=== PATIENT | female | born 1975 | race Caucasian/White ===

== ENCOUNTER 2024-04-07 15:14 | Observation (INO) ==
--- NOTE | 2024-04-07 15:35 | Emergency Department Note ---
HPI - Chest Pain General Chief Complaint: SOB -Shortness of Breath Stated Complaint: chest pain,sob Time Seen by Provider: 04/07/24 15:30 Source: patient Mode of arrival: walk-in Limitations: no limitations History of Present Illness HPI narrative: This is a 48 year old female patient that presents to the ER with c/o chest pain with SOB sent by PCP office today. Patient denies any back pain, abdominal pain, numbness, tingling, weakness, fever, chills or N/V/D MD complaint: Reports chest pain Onset (ago): day(s) (2) Timing of current episode: Reports episodic Onset: Reports during rest Pain location: Reports left chest Pain radiation: Reports none Severity: mild Quality: Reports tightness Relieving factors: Reports nothing Exacerbating factors: Reports nothing Treatment prior to arrival: Reports none Risk Factors Coronary artery disease risk factors: Reports hypertension Thoracic aortic dissection risk factors: Reports none Pulmonary embolism risk factors: Reports none Related Data Allergies Allergy/AdvReac Type Severity Reaction Status Date / Time PROBIOTICS Allergy Uncoded 04/07/24 15:48 STEROIDS Allergy Uncoded 04/07/24 15:48 Review of Systems Status of ROS 10 or more systems reviewed and unremark able except as noted in history and below Constitutional Denies: fever, chills, change in weight, fatigue or malaise Eyes Denies: change in vision, blurry vision or blind spots Ears, nose, mouth, and throat Denies: throat pain, neck pain, throat swelling, difficulty swallowing, hoarseness or mouth pain Cardiovascular Reports: chest pain; Denies: palpitations, edema, swelling of feet/ankles, lightheadedness or shortness of breath with exertion Respiratory Reports: shortness of breath; Denies: cough, wheezing, stridor, pain on inspiration, change in phlegm color or coughing up blood Gastrointestinal Denies: abdominal pain, nausea, vomiting, coffee grounds in vomit, heartburn, diarrhea, white/light colored stool or fatty stool Genitourinary Denies: painful urination, urinary frequency, urinary urgency, urinary incontinence or blood in urine Musculoskeletal Denies: back pain, neck pain, extremity pain, extremity swelling, joint pain or limited range of motion Integumentary/Breast Denies: rash, itching, redness, skin pain, skin tenderness, skin swelling, stretch mota or acne Neurological Denies: headache, numbness in extremities, weakness in extremities or lack of coordination Psychiatric Denies: anxiety, mood swings, panic attacks or change in sleep pattern Endocrine Denies: excessive urination, excessive thirst, fatigue, cold intolerance or excessive sweating Hematologic/Lymphatic Denies: easy bruising, easy bleeding or enlarged lymph nodes Allergic/Immunologic Denies: hives, throat swelling, tongue swelling or facial swelling Exam Constitutional: normal general appearance and no apparent distress Vital Signs - 24 hr 04/07/24 15:20 04/07/24 16:05 Temperature 98 F Pulse Rate 86 Respiratory Rate 18 Blood Pressure 159/96 119/76 Pulse Oximetry 97 Oxygen Delivery Me thod Room Air HENMT: normocephalic, head/scalp atraumatic, hearing grossly normal bilaterally, external ears normal, nasal mucous membranes normal, external nose normal, oral mucous membranes normal and oropharynx normal Eyes: PERRL, EOMs intact bilaterally, conjunctivae normal and no scleral icterus Neck/C-Spine: visual inspection normal and trachea midline Lymph: no lymphadenopathy noted Chest: inspection of chest normal and palpation of chest normal Respiratory: breath sounds equal bilaterally, normal respiratory effort, clear to auscultation bilaterally, no wheezes, no rales, no retractions, no use of accessory muscles and chest percussion normal Cardiovascular: normal heart rate noted, regular rhythm noted, no gallop, no rub, no murmur, no JVD, no clicks, peripheral pulses 2+ throughout and no additional abnormal heart sounds Gastrointestinal: abdomen normal to inspection, abdomen soft to palpation, nontender to palpation, nontender to percussion, nondistended, normoactive bowel sounds, no hepatosplenomegaly, no masses, no pulsatile mass, no ascites and no hernia Genitourinary: no CVA tenderness Back/Pelvis: spine normal to inspection Extremities: normal to inspection, normal to palpation, no tenderness, full ROM, no joint enlargement and no deformity Neurology: no movement abnormality noted, no focal motor deficit noted, no sensory deficits noted, gait normal, speech normal, coordination normal, no fasciculations noted and GCS normal Psychiatry: mental status grossly normal, oriented x3, thought process normal, cooperative and affect normal Skin: skin color normal Course Course Hospital Course: 1603: due to ongoing chest pain, risk factors, family hx will admit patient to the medical floor for further evaluation and treatment, VSS, no s/s of acute distress noted Reevaluation(s) Reevaluation #1: 1750: patient is c/o abdominal cramps, new order given Vital Signs Vital signs: Vital Signs Temperature 98 F 04/07/24 15:20 Pulse Rate 86 04/07/24 15:20 Respiratory Rate 18 04/07/24 15:20 Blood Pressure 159/96 04/07/24 15:20 Pulse Oximetry 97 04/07/24 15:20 Oxygen Delivery Method Room Air 04/07/24 15:20 Temperature 98 F 04/07/24 15:20 Pulse Rate 86 04/07/24 15:20 Respiratory Rate 18 04/07/24 15:20 Blood Pressure 119/76 04/07/24 16:05 Pulse Oximetry 97 04/07/24 15:20 Oxygen Delivery Method Room Air 04/07/24 15:20 MDM - Chest Pain Differential Diagnosis Differential diagnosis: Likely atypical chest pain Lab Data Labs: Lab Results 04/07/24 Range/Units 15:35 WBC 6.3 (4.3-9.3) K/uL RBC 4.7 (4.00-5.50) M/uL Hgb 14.5 (12.5-15.8) gm/dL Hct 43.0 (35.9-46.7) % MCV 92.2 (81.0-93.7) fl MCH 31.1 (27.6-32.2) pg MCHC 33.7 (33.1-35.3) g/dl RDW 15.7 H (11.4-14.2) % Plt Count 182 (152-353) K/uL MPV 9.0 (6.9-10.8) fl Gran % 60.8 (47.8-71.3) % Lymph % (Auto) 30.2 (20.0-43.0) % [place] % (Auto) 4.9 (3.6-9.8) % Eos % (Auto) 3.2 H (0.4-2.8) % Baso % (Auto) 0.9 H (0.1-0.85) Lymph # (Auto) 1.9 (1.1-3.1) [place] # (Auto) 0.3 L (1.1-3.1) Eos # (Auto) 0.2 (0.0-0.2) Baso # (Auto) 0.1 (0.0-0.1) Absolute Gran (auto) 3.8 (2.3-6.0) D-Dimer 174 (100-600) ng/mL Sodium 135 L (136-145) mmol/L Potassium 3.4 L (3.6-5.2) mmol/L Chloride 100.0 (98-107) mmol/L Carbon Dioxide 26 (21-32) mmol/L Anion Gap 9.0 (4-14) mEq/L BUN 13 (7-18) mg/dL Creatinine 1.6 H (0.6-1.3) mg/dL Estimated GFR 39.5 (>59.9) Glucose 97 (70-110) mg/dL Calcium 8.8 (8.5-10.1) mg/dL Total Bilirubin 0.46 (0.0-1.0) mg/dL AST 25 (15-37) U/L ALT 30 (30-65) U/L Alkaline Phosphatase 91 (50-136) U/L Troponin I High Sens <4.00 L (4.0-60.4) ng/L B-Natriuretic Peptide <5.0 (0-100) pg/mL Total Protein 7.6 (6.4-8.2) g/dL Albumin 3.8 (3.4-5.0) g/dL Imaging Data Imaging ordered: Chest x-ray Attestation: I have reviewed the pertinent imaging results. ECG Data Attestation: I have reviewed the pertinent ECG results. Discharge Plan Discharge Patient Disposition: Admitted As Observation Condition: Stable Clinical Impression: Chest pain Time of Disposition: 16:05 [facility] Medical History (Updated 04/07/24 @ 15:51 by Marian Hodge, TEJ) Hypothyroid Surgical History (Updated 04/07/24 @ 15:51 by Marian Hodge RN) Hx of appendectomy History of cholecystectomy History of hysterectomy
[2024-04-07 15:47] LABS: Basophils #(Absolute) Auto 0.1 (0.0-0.1); Basophils%(Percent) Auto 0.9 (0.1-0.85); Eosinophils#(Absolute)Auto 0.2 (0.0-0.2); Eosinophils%(Percent) Auto 3.2 % (0.4-2.8); Granulocytes % - Auto 60.8 % (47.8-71.3); Granulocytes#(Absolute)- Auto 3.8 (2.3-6.0); Mean Corpuscular Volume 92.2 fl (81.0-93.7); Monocytes #(Absolute)- Auto 0.3 (1.1-3.1); Monocytes %(Percent)- Auto 4.9 % (3.6-9.8); Platelet Count 182 K/uL (152-353); White Blood Count 6.3 K/uL (4.3-9.3)
[2024-04-07 16:03] LABS: Carbon Dioxide 26 mmol/L (21-32); Glucose 97 mg/dL (70-110); Potassium 3.4 mmol/L (3.6-5.2); Sodium 135 mmol/L (136-145)
[2024-04-07] MEDS ORDERED: NITROGLYCERIN 1 GM OINT...G. TD ONE (16:04)
[2024-04-07] MEDS ORDERED: ASPIRIN 81 MG TAB.CHEW ONE (16:04)
[2024-04-07] MEDS: NITROGLYCERIN 1 GM OINT...G. TD ONE (16:05)
[2024-04-07] MEDS: ASPIRIN 81 MG TAB.CHEW PO ONE (16:05)
[2024-04-07] MEDS ORDERED: 0.9 % SODIUM CHLORIDE 1000 ML 1,000 ML IV ONE (19:24)
[2024-04-07] MEDS ORDERED: POTASSIUM CHLORIDE 20 MEQ TAB.ER.PRT PO ONE (19:24)
[2024-04-07] MEDS: POTASSIUM CHLORIDE 20 MEQ TAB.ER.PRT PO ONE (19:26)
[2024-04-07] MEDS: 0.9 % SODIUM CHLORIDE 1000 ML 1,000 ML IV SCH (19:27)
[2024-04-07] MEDS ORDERED: ENOXAPARIN SODIUM 80 MG/0.8 ML SYRINGE SUBQ ONE (19:28)
[2024-04-07] MEDS ORDERED: PANTOPRAZOLE SODIUM 40 MG TABLET.DR PO ONE (19:28)
[2024-04-07] MEDS: ENOXAPARIN SODIUM 80 MG/0.8 ML SYRINGE SUBQ SCH (19:29)
[2024-04-07] MEDS: PANTOPRAZOLE SODIUM 40 MG TABLET.DR PO SCH (20:01)
[2024-04-07] MEDS ORDERED: MORPHINE SULFATE 2 MG/ML CARTRIDGE IV PRN (21:09)
[2024-04-07] MEDS ORDERED: DICYCLOMINE HCL 10 MG/ML AMPUL IM SCH (21:45)
[2024-04-07] MEDS: NITROGLYCERIN 1 GM OINT...G. TD SCH (22:24)
[2024-04-07] MEDS: GUAIFENESIN/DEXTROMETHORPHAN 20/200MG/10 ML SOLUTION PO ONE (22:24)
[2024-04-08 00:39] LABS: Urine Appearance CLEAR (CLEAR); Urine Blood NEGATIVE (NEG - TRACE); Urine Color YELLOW (STRAW/YELL.); Urine Urobilinogen Normal (NORMAL)
[2024-04-08 06:56] LABS: Basophils #(Absolute) Auto 0.1 (0.0-0.1); Eosinophils#(Absolute)Auto 0.2 (0.0-0.2); Eosinophils%(Percent) Auto 2.9 % (0.4-2.8); Granulocytes % - Auto 57.6 % (47.8-71.3); Granulocytes#(Absolute)- Auto 3.3 (2.3-6.0); Hematocrit 38.4 % (35.9-46.7); Mean Corpuscular Volume 92.5 fl (81.0-93.7); Monocytes #(Absolute)- Auto 0.3 (1.1-3.1); Monocytes %(Percent)- Auto 4.7 % (3.6-9.8); Platelet Count 160 K/uL (152-353); White Blood Count 5.8 K/uL (4.3-9.3)
[2024-04-08 07:12] LABS: Potassium 3.8 mmol/L (3.6-5.2)
[2024-04-08 07:19] LABS: INR 0.9
[2024-04-08 08:06] VITALS: RESP 19
[2024-04-08] MEDS: ASPIRIN 81 MG TAB.CHEW PO SCH (09:46)
[2024-04-08 12:01] VITALS: BP 119/73; PULSE 56; TEMP 97.7
[2024-04-08] MEDS: LEVOTHYROXINE SODIUM 100 MCG VIAL IVP ONE (13:39)
--- NOTE | 2024-04-08 16:00 | History & Physical Report ---
H&P: HPI History of Present Illness Chief complaint: chest pain Narrative: This is a 48 year old female patient that presents to the ER with c/o chest pain with SOB sent by PCP office today. Patient denies any back pain, abdominal pain, numbness, tingling, weakness, fever, chills or N/V/D. Patient admitted to fl d/surg for further observation and treatment. Day one of hospital stay, patient was alert and oriented upon arriving to med/surg floor. No pain was reported at this time. Nurse reports normal active bowel sounds, breath sounds normal, and heart rhythm and rate within normal limits at this time. Review of Systems Status of ROS 10 or more systems reviewed and unremark able except as noted in history and below Constitutional Denies: fever, chills, change in weight, fatigue or malaise Eyes Denies: change in vision, blurry vision or blind spots Ears, nose, mouth, and throat Denies: throat pain, neck pain, throat swelling, difficulty swallowing, hoarseness or mouth pain Cardiovascular Reports: chest pain and shortness of breath with exertion; Denies: palpitations, edema, swelling of feet/ankles or lightheadedness Respiratory Reports: shortness of breath; Denies: cough, wheezing, stridor, pain on inspiration, change in phlegm color or coughing up blood Gastrointestinal Denies: abdominal pain, nausea, vomiting, coffee grounds in vomit, heartburn, diarrhea, difficulty swallowing, white/light colored stool or fatty stool Genitourinary Denies: painful urination, urinary frequency, urinary urgency, urinary incontinence or blood in urine Musculoskeletal Denies: back pain, neck pain, extremity pain, extremity swelling, joint pain or limited range of motion Integumentary/Breast Denies: rash, itching, redness, skin pain, skin tenderness, skin swelling, stretch mota or acne Neurological Denies: headache, numbness in extremities, weakness in extremities or lack of coordination Psychiatric Denies: anxiety, mood swings, panic attacks or change in sleep pattern Endocrine Denies: excessive urination, excessive thirst, fatigue, cold intolerance or excessive sweating Hematologic/Lymphatic Denies: easy bruising, easy bleeding or enlarged lymph nodes Allergic/Immunologic Denies: hives, throat swelling, tongue swelling, facial swelling or wheezing [facility] Medical History Allergic rhinitis PCOS (polycystic ovarian syndrome) Migraines Hyperlipidemia Bradycardia Angina at rest Hypertension Hypothyroid Surgical History Hx of appendectomy History of cholecystectomy History of hysterectomy Social History Problems where you live: no known problems Highest level of school completed/degree received: high school Gender Identity: female Meds Home Medications and Allergies Home Medications Medication Instructions Recorded Confirmed Type albuterol sulfate 2.5 mg/3 mL 2.5 mg inhalation Q4H PRN 04/08/24 04/08/24 History (0.083 %) solution for nebulization shortness of breath or wheezing baclofen 10 mg tablet 10 mg PO BID 04/08/24 04/08/24 History benzonatate 200 mg capsule 200 mg PO TID PRN cough #30 caps 04/08/24 Rx diltiazem HCl 120 mg capsule,24 120 mg PO DAILY 04/08/24 04/08/24 History hr,extended release ezetimibe 10 mg tablet 10 mg PO BEDTIME 04/08/24 04/08/24 History levothyroxine 150 mcg tablet 150 mcg PO QDAC 04/08/24 04/08/24 History loratadine 10 mg tablet 10 mg PO DAILY 04/08/24 04/08/24 History rizatriptan 10 mg tablet 10 mg PO Q2H PRN migraine headache 04/08/24 04/08/24 History rosuvastatin 40 mg tablet 40 mg PO BEDTIME 04/08/24 04/08/24 History spironolactone 25 mg tablet 25 mg PO DAILY PRN edema 04/08/24 04/08/24 History topiramate 100 mg tablet 200 mg PO BEDTIME 04/08/24 04/08/24 History Allergies Allergy/AdvReac Type Severity Reaction Status Date / Time PROBIOTICS Allergy Uncoded 04/07/24 15:48 STEROIDS Allergy Uncoded 04/07/24 15:48 Exam Exam: Patient in low greco's position upon entering room for exam. Constitutional: normal general appearance and no apparent distress Vital Signs - 24 hr 04/07/24 15:20 04/07/24 16:05 Temperature 98 F Pulse Rate 86 Respiratory Rate 18 Blood Pressure 159/96 119/76 Pulse Oximetry 97 Oxygen Delivery Me thod Room Air HENMT: normocephalic, head/scalp atraumatic, hearing grossly normal bilaterally, external ears normal, nasal mucous membranes normal, external nose normal, oral mucous membranes normal and oropharynx normal Eyes: PERRL, EOMs intact bilaterally, conjunctivae normal and no scleral icterus Neck/C-Spine: visual inspection normal and trachea midline Lymph: no lymphadenopathy noted Chest: inspection of chest normal and palpation of chest normal Respiratory: breath sounds equal bilaterally, normal respiratory effort, clear to auscultation bilaterally, no wheezes, no rales, no retractions, no use of accessory muscles and chest percussion normal Cardiovascular: normal heart rate noted, regular rhythm noted, no gallop, no rub, no murmur, no JVD, no clicks, peripheral pulses 2+ throughout and no additional abnormal heart sounds Gastrointestinal: abdomen normal to inspection, abdomen soft to palpation, nontender to palpation, nontender to percussion, nondistended, normoactive bowel sounds, no hepatosplenomegaly, no masses, no pulsatile mass, no ascites and no hernia Genitourinary: no CVA tenderness Back/Pelvis: spine normal to inspection Extremities: normal to inspection, normal to palpation, no tenderness, full ROM, no joint enlargement and no deformity Neurology: no movement abnormality noted, no focal motor deficit noted, no sensory deficits noted, gait normal, speech normal, coordination normal, no fasciculations noted and GCS normal Psychiatry: mental status grossly normal, oriented x3, thought process normal, cooperative and affect normal Skin: skin color normal Assessment and Plan Assessment and Plan (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5 - Hyperlipidemia, unspecified Plan Sodium Chloride 1,000 mls @ 150 mls/hr IV CONT Pantoprazole Sodium 40 mg PO BID Enoxaparin Sodium 80 mg SUBQ Q12H Aspirin 324 mg PO DAILY Dicyclomine Hcl 20 mg IM ONCE Nitroglycerin 1 gm TD 0400, 2200 Morphine Sulfate 2 mg IV Q4H PRN Results Labs Labs: CBC WBC 6.3 K/uL (4.3-9.3) 04/07/24 15:35 RBC 4.7 M/uL (4.00-5.50) 04/07/24 15:35 Hgb 14.5 gm/dL (12.5-15.8) 04/07/24 15:35 Hct 43.0 % (35.9-46.7) 04/07/24 15:35 MCV 92.2 fl (81.0-93.7) 04/07/24 15:35 MCH 31.1 pg (27.6-32.2) 04/07/24 15:35 MCHC 33.7 g/dl (33.1-35.3) 04/07/24 15:35 RDW 15.7 % (11.4-14.2) H 04/07/24 15:35 Plt Count 182 K/uL (152-353) 04/07/24 15:35 MPV 9.0 fl (6.9-10.8) 04/07/24 15:35 Gran % 60.8 % (47.8-71.3) 04/07/24 15:35 Lymph % (Auto) 30.2 % (20.0-43.0) 04/07/24 15:35 [place] % (Auto) 4.9 % (3.6-9.8) 04/07/24 15:35 Eos % (Auto) 3.2 % (0.4-2.8) H 04/07/24 15:35 Baso % (Auto) 0.9 (0.1-0.85) H 04/07/24 15:35 Lymph # (Auto) 1.9 (1.1-3.1) 04/07/24 15:35 [place] # (Auto) 0.3 (1.1-3.1) L 04/07/24 15:35 Eos # (Auto) 0.2 (0.0-0.2) 04/07/24 15:35 Baso # (Auto) 0.1 (0.0-0.1) 04/07/24 15:35 Absolute Gran (auto) 3.8 (2.3-6.0) 04/07/24 15:35 BMP Sodium 135 mmol/L (136-145) L 04/07/24 15:35 Potassium 3.4 mmol/L (3.6-5.2) L 04/07/24 15:35 Chloride 100.0 mmol/L (98-107) 04/07/24 15:35 Carbon Dioxide 26 mmol/L (21-32) 04/07/24 15:35 Anion Gap 9.0 mEq/L (4-14) 04/07/24 15:35 BUN 13 mg/dL (7-18) 04/07/24 15:35 Creatinine 1.6 mg/dL (0.6-1.3) H 04/07/24 15:35 Estimated GFR 39.5 (>59.9) 04/07/24 15:35 Glucose 97 mg/dL (70-110) 04/07/24 15:35 Calcium 8.8 mg/dL (8.5-10.1) 04/07/24 15:35 Total Bilirubin 0.46 mg/dL (0.0-1.0) 04/07/24 15:35 AST 25 U/L (15-37) 04/07/24 15:35 ALT 30 U/L (30-65) 04/07/24 15:35 Alkaline Phosphatase 91 U/L (50-136) 04/07/24 15:35 Total Protein 7.6 g/dL (6.4-8.2) 04/07/24 15:35 Albumin 3.8 g/dL (3.4-5.0) 04/07/24 15:35 Cardiac Enzymes Troponin I High Sens <4.00 ng/L (4.0-60.4) L 04/07/24 15:35 Liver Function Total Bilirubin 0.46 mg/dL (0.0-1.0) 04/07/24 15:35 AST 25 U/L (15-37) 04/07/24 15:35 ALT 30 U/L (30-65) 04/07/24 15:35 Alkaline Phosphatase 91 U/L (50-136) 04/07/24 15:35 Total Protein 7.6 g/dL (6.4-8.2) 04/07/24 15:35 Albumin 3.8 g/dL (3.4-5.0) 04/07/24 15:35 Imaging Imaging ordered: Chest x-ray and CT scan - abdomen Radiologist's impression: XR CHEST 1V Date of Service: 04/07/24 HISTORY: chest pain, sob; COMPARISON: March 11, 2024 FINDINGS: The trachea is midline. The cardiac silhouette is borderline in size. The lungs are clear without focal infiltrate or effusion. The bony thorax is unremarkable. IMPRESSION: No acute cardiopulmonary disease. CT ABDOMEN AND PELVIS WITH CONTRAST Date of Service: 04/07/24 HISTORY: Abdominal pain COMPARISON: None TECHNIQUE: Axial images were acquired of the abdomen and pelvis with IV contrast. Sagittal and coronal reformatted images were provided. All images were reviewed in a variety of windows and levels. RADIATION REDUCTION TECHNIQUE: Automated exposure control, adjustment of the mA and/or kV according to patient size, or iterative reconstruction techniques were used. FINDINGS: LOWER THORAX: The visualized lower lung zones are clear. The heart size is within normal limits. There is no evidence of a pericardial effusion. LIVER: No intrahepatic focal lesions are seen. No evidence of intrahepatic or extrahepatic duct dilation. GALLBLADDER: The gallbladder has been surgically removed. SPLEEN: The spleen enhances homogenously and is unremarkable. PANCREAS: The pancreas enhances homogenously and is unremarkable. ADRENAL GLANDS: The adrenal glands enhance homogenously and are unremarkable. : The kidneys enhance homogenously. Their collecting system is of normal caliber.Status post hysterectomy. There is a surgical clip located in the left lower pelvis which is of unclear etiology or procedure. Please correlate with patient's past surgical history. URINARY BLADDER: The urinary bladder is unremarkable. There are no soft tissue masses seen in the urinary bladder. VESSELS: The abdominal aorta is normal in size without evidence of aneurysm or dissection. The celiac artery, superior mesenteric artery, [place] renal arteries, and inferior mesenteric artery are patent. GI: The stomach and small bowel is unremarkable. Few scattered diverticula are seen without evidence of diverticulitis. There are no inflammatory changes seen in the right lower quadrant to suggest secondary signs of acute appendicitis. Postoperative changes are seen near the cecum which may be from prior appendectomy. LYMPHNODES AND MESENTERY: There is no evidence of retroperitoneal lymphadenopathy. BONES: The visualized bones demonstrate degenerative changes. There are no concerning lytic or blastic lesions identified. IMPRESSION: 1. The gallbladder has been surgically removed. 2. Status post hysterectomy. 3. Postoperative changes are seen near the cecum which may be from prior appendectomy.
--- NOTE | 2024-04-08 16:14 | Discharge Summary ---
DS: Providers Provider Date of admission: 04/07/24 16:22 Primary care physician: Mireya Kidd DO Admitting clinician: Rosalia Chavez Attending physician on admission: Mireya Kidd Attending physician on discharge: Mireya Kidd Discharging clinician: Mireya Kidd Anticipated date of discharge: 04/08/24 DS: Diagnosis Discharge Diagnosis (1) Myxedema coma: (2) Hypothyroid: Qualifiers: Hypothyroidism type: unspecified Qualified Code(s): E03.9 - Hypothyroidism, unspecified (3) Angina at rest: (4) Hypertension: Qualifiers: Hypertension type: primary hypertension Qualified Code(s): I10 - Essential (primary) hypertension (5) Bradycardia: (6) Hyperlipidemia: Qualifiers: Hyperlipidemia type: unspecified Qualified Code(s): E78.5 - Hyperlipidemia, unspecified Plan Discharge home for self care. educated on Need for movement and not laying around and the need for medications to be compliant with her medications and follow up office visits DS: Summary Hospital Course Hospital Course: This is a 48 year old female patient that presents to the ER with c/o chest pain with SOB sent by PCP office today. Patient denies any back pain, abdominal pain, numbness, tingling, weakness, fever, chills or N/V/D. Patient admitted to med/surg for further observation and treatment. Day one of hospital stay, patient was alert and oriented upon arriving to med/surg floor. No pain was reported at this time. Nurse reports normal active bowel sounds, breath sounds normal, and heart rhythm and rate within normal limits at this time. Day two of hospital stay, patient symptoms have improved and breath sounds are good. Patient complains of a cough for 4 weeks; she states it this started after heart cath was performed by Dr. Lock. She received duo neb breathing treatment and an incentive spirometer to help strengthen lungs. Lab work reflects patient has had been experiencing Myxedema Coma due to noncompliance with thyroid medication. Thyroid medication was restarted and patient was educated on importance of taking mediation as prescribed. Patient is ready to discharge home for self care. 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 Status at Discharge Functional status at discharge: independent ambulation Overall status at discharge: patient is back to baseline Time Spent with Patient Time attestation: Total time spent providing and/or coordinating discharge services: Time spent: greater than 30 minutes Exam Exam: Patient in low greco's position upon entering room for exam. Constitutional: normal general appearance, no apparent distress, abnormal body habitus (obese), no limitations and alert Vital Signs - 24 hr 04/07/24 16:05 04/07/24 17:00 04/07/24 17:05 Temperature Pulse Rate 66 Pulse Rate [Left B rachial] Respiratory Rate 12 Blood Pressure 119/76 120/85 120/85 Blood Pressure [Le ft Arm] Pulse Oximetry 99 Oxygen Delivery Me thod 04/07/24 18:00 04/07/24 18:30 04/07/24 19:00 Temperature Pulse Rate 78 78 69 Pulse Rate [Left B rachial] Respiratory Rate 15 16 16 Blood Pressure 126/92 131/92 129/82 Blood Pressure [Le ft Arm] Pulse Oximetry 98 98 98 Oxygen Delivery [facility] Room Air Room Air 04/07/24 19:31 04/07/24 20:00 04/07/24 20:30 Temperature 98 F Pulse Rate 64 69 69 Pulse Rate [Left B rachial] Respiratory Rate 15 15 15 Blood Pressure 126/91 127/77 127/77 Blood Pressure [Le ft Arm] Pulse Oximetry 98 98 98 Oxygen Delivery [facility] Room Air Room Air 04/07/24 21:09 04/07/24 21:38 04/08/24 00:00 Temperature 97.5 F L 97.5 F L 97.4 F L Pulse Rate Pulse Rate [Left B rachial] 65 65 72 Respiratory Rate 19 19 18 Blood Pressure Blood Pressure [Le ft Arm] 124/90 124/90 130/76 Pulse Oximetry 98 98 95 Oxygen Delivery [facility] Room Air 04/08/24 00:49 04/08/24 04:00 04/08/24 08:00 Temperature 97.6 F 98.1 F Pulse Rate Pulse Rate [Left B rachial] 59 L 61 Respiratory Rate 18 19 Blood Pressure 130/76 Blood Pressure [Le ft Arm] 120/71 136/78 Pulse Oximetry 95 96 Oxygen Delivery [facility] Room Air Room Air 04/08/24 10:15 04/08/24 12:00 Temperature 97.7 F Pulse Rate Pulse Rate [Left B rachial] 56 L Respiratory Rate 19 Blood Pressure 136/78 Blood Pressure [Le ft Arm] 119/73 Pulse Oximetry 97 Oxygen Delivery Me thod Room Air HENMT: normocephalic, head/scalp atraumatic, hearing grossly normal bilaterally, external ears normal, nasal mucous membranes normal, external nose normal, oral mucous membranes normal and oropharynx normal Eyes: PERRL, EOMs intact bilaterally, conjunctivae normal and no scleral icterus Neck/C-Spine: visual inspection normal and trachea midline Lymph: no lymphadenopathy noted Chest: inspection of chest normal and palpation of chest normal Respiratory: breath sounds equal bilaterally, normal respiratory effort, clear to auscultation bilaterally, no wheezes, no rales, no retractions, no use of accessory muscles and chest percussion normal Cardiovascular: normal heart rate noted, regular rhythm noted, no gallop, no rub, no murmur, no JVD, no clicks, peripheral pulses 2+ throughout and no additional abnormal heart sounds Gastrointestinal: abdomen normal to inspection, abdomen soft to palpation, nontender to palpation, nontender to percussion, nondistended, normoactive bowel sounds, no hepatosplenomegaly, no masses, no pulsatile mass, no ascites and no hernia Genitourinary: no CVA tenderness Back/Pelvis: spine normal to inspection Extremities: normal to inspection, normal to palpation, no tenderness, full ROM, no joint enlargement and no deformity Neurology: no movement abnormality noted, no focal motor deficit noted, no sensory deficits noted, gait normal, speech normal, coordination normal, no fasciculations noted and GCS normal Psychiatry: mental status grossly normal, oriented x3, thought process normal, cooperative and affect normal Skin: skin color normal DS: Data Data Completed and Pending Labs on day of discharge: Labs from last 24 hours 04/08/24 04/08/24 04/08/24 06:45 03:20 00:55 WBC 5.8 RBC 4.2 Hgb 13.2 Hct 38.4 MCV 92.5 MCH 31.9 MCHC 34.5 RDW 15.6 H Plt Count 160 MPV 9.2 Gran % 57.6 Lymph % (Auto) 33.8 [place] % (Auto) 4.7 Eos % (Auto) 2.9 H Baso % (Auto) 1.0 H Lymph # (Auto) 2.0 [place] # (Auto) 0.3 L Eos # (Auto) 0.2 Baso # (Auto) 0.1 Absolute Gran (auto) 3.3 PT 12.6 PT Normal Control 13.7 INR 0.90 APTT 61.4 H D-Dimer Sodium 137 Potassium 3.8 Chloride 104.0 Carbon Dioxide 24 Anion Gap 9.0 BUN 9 Creatinine 1.1 Estimated GFR 62.0 Glucose 118 H Calcium 7.8 L Phosphorus 3.8 Magnesium 2.3 Total Bilirubin 0.24 AST 24 ALT 32 Alkaline Phosphatase 93 Troponin I High Sens <4.00 L <4.00 L 4.30 B-Natriuretic Peptide Total Protein 6.3 L Albumin 3.0 L TSH 178.80 H Urine Color Urine Appearance Ur Specific [place] Urine Protein Urine Glucose (UA) Urine Ketones Urine Occult Blood Urine Nitrite Urine Bilirubin Urine Urobilinogen Ur Leukocyte Esterase Fluid pH Influenza Type A Ag Influenza Type B Ag 04/08/24 04/07/24 04/07/24 00:00 21:40 19:15 WBC RBC Hgb Hct MCV MCH MCHC RDW Plt Count MPV Gran % Lymph % (Auto) [place] % (Auto) Eos % (Auto) Baso % (Auto) Lymph # (Auto) [place] # (Auto) Eos # (Auto) Baso # (Auto) Absolute Gran (auto) PT PT Normal Control INR APTT D-Dimer Sodium Potassium Chloride Carbon Dioxide Anion Gap BUN Creatinine Estimated GFR Glucose Calcium Phosphorus Magnesium Total Bilirubin AST ALT Alkaline Phosphatase Troponin I High Sens <4.00 L 6.50 B-Natriuretic Peptide Total Protein Albumin TSH Urine Color Yellow Urine Appearance Clear Ur Specific [place] 1.010 Urine Protein Negative Urine Glucose (UA) Normal Urine Ketones Negative Urine Occult Blood Negative Urine Nitrite Negative Urine Bilirubin Negative Urine Urobilinogen Normal Ur Leukocyte Esterase Negative Fluid pH 5.0 Influenza Type A Ag Influenza Type B Ag 04/07/24 15:35 WBC RBC Hgb Hct MCV MCH MCHC RDW Plt Count MPV Gran % Lymph % (Auto) [place] % (Auto) Eos % (Auto) Baso % (Auto) Lymph # (Auto) [place] # (Auto) Eos # (Auto) Baso # (Auto) Absolute Gran (auto) PT PT Normal Control INR APTT D-Dimer 174 Sodium 135 L Potassium 3.4 L Chloride 100.0 Carbon Dioxide 26 Anion Gap 9.0 BUN 13 Creatinine 1.6 H Estimated GFR 39.5 Glucose 97 Calcium 8.8 Phosphorus Magnesium Total Bilirubin 0.46 AST 25 ALT 30 Alkaline Phosphatase 91 Troponin I High Sens <4.00 L B-Natriuretic Peptide <5.0 Total Protein 7.6 Albumin 3.8 TSH Urine Color Urine Appearance Ur Specific [place] Urine Protein Urine Glucose (UA) Urine Ketones Urine Occult Blood Urine Nitrite Urine Bilirubin Urine Urobilinogen Ur Leukocyte Esterase Fluid pH Influenza Type A Ag Negative Influenza Type B Ag Negative Imaging Chest x-ray: Radiologist's impression: XR CHEST 1V Date of Service: 04/07/24 HISTORY: chest pain, sob; COMPARISON: March 11, 2024 FINDINGS: The trachea is midline. The cardiac silhouette is borderline in size. The lungs are clear without focal infiltrate or effusion. The bony thorax is unremarkable. IMPRESSION: No acute cardiopulmonary disease. CT scan - abdomen: Radiologist's impression: CT ABDOMEN AND PELVIS WITH CONTRAST Date of Service: 04/07/24 HISTORY: Abdominal pain COMPARISON: None TECHNIQUE: Axial images were acquired of the abdomen and pelvis with IV contrast. Sagittal and coronal reformatted images were provided. All images were reviewed in a variety of windows and levels. RADIATION REDUCTION TECHNIQUE: Automated exposure control, adjustment of the mA and/or kV according to patient size, or iterative reconstruction techniques were used. FINDINGS: LOWER THORAX: The visualized lower lung zones are clear. The heart size is within normal limits. There is no evidence of a pericardial effusion. LIVER: No intrahepatic focal lesions are seen. No evidence of intrahepatic or extrahepatic duct dilation. GALLBLADDER: The gallbladder has been surgically removed. SPLEEN: The spleen enhances homogenously and is unremarkable. PANCREAS: The pancreas enhances homogenously and is unremarkable. ADRENAL GLANDS: The adrenal glands enhance homogenously and are unremarkable. : The kidneys enhance homogenously. Their collecting system is of normal zarina diana.Status post hysterectomy. There is a surgical clip located in the left lower pelvis which is of unclear etiology or procedure. Please correlate with patient's past surgical history. URINARY BLADDER: The urinary bladder is unremarkable. There are no soft tissue masses seen in the urinary bladder. VESSELS: The abdominal aorta is normal in size without evidence of aneurysm or dissection. The celiac artery, superior mesenteric artery, [place] renal arteries, and inferior mesenteric artery are patent. GI: The stomach and small bowel is unremarkable. Few scattered diverticula are seen without evidence of diverticulitis. There are no inflammatory changes seen in the right lower quadrant to suggest secondary signs of acute appendicitis. Postoperative changes are seen near the cecum which may be from prior appendectomy. LYMPHNODES AND MESENTERY: There is no evidence of retroperitoneal lymphadenopathy. BONES: The visualized bones demonstrate degenerative changes. There are no concerning lytic or blastic lesions identified. IMPRESSION: 1. The gallbladder has been surgically removed. 2. Status post hysterectomy. 3. Postoperative changes are seen near the cecum which may be from prior appendectomy. Discharge Plan Discharge Disposition: Home, Self-Care Condition: Improved Discharge Medications: New benzonatate 200 mg capsule 200 mg PO TID PRN (Reason: cough) Qty: 30 0RF Continued loratadine 10 mg tablet 10 mg PO DAILY Patient Comments: TAKE ONE TABLET BY MOUTH DAILY ezetimibe 10 mg tablet 10 mg PO BEDTIME Patient Comments: TAKE ONE TABLET BY MOUTH AT BEDTIME baclofen 10 mg tablet 10 mg PO BID Patient Comments: TAKE ONE TABLET BY MOUTH TWICE DAILY FOR cramps rizatriptan 10 mg tablet 10 mg PO Q2H PRN (Reason: migraine headache) Patient Comments: Take 1 tablet as needed at onset of migraine, may repeat in 2 hours if needed, max dose is 2 tablets in 24 hours spironolactone 25 mg tablet 25 mg PO DAILY PRN (Reason: edema) Patient Comments: TAKE ONE TABLET BY MOUTH DAILY NEEDED FOR EDEMA levothyroxine 150 mcg tablet 150 mcg PO QDAC Patient Comments: TAKE ONE TABLET BY MOUTH DAILY topiramate 100 mg tablet 200 mg PO BEDTIME Patient Comments: TAKE TWO TABLETS BY MOUTH AT BEDTIME diltiazem HCl 120 mg capsule,extended release 24hr 120 mg PO DAILY Patient Comments: TAKE ONE CAPSULE BY MOUTH DAILY rosuvastatin 40 mg tablet 40 mg PO BEDTIME Patient Comments: TAKE ONE TABLET BY MOUTH AT BEDTIME albuterol sulfate 2.5 mg /3 mL (0.083 %) solution for nebulization 2.5 mg inhalation Q4H PRN (Reason: shortness of breath or wheezing) Patient Comments: USE ONE VIAL VIA NEBULIZER EVERY 4 HOURS NEEDED Discharge Orders: Discharge Order (Routine); Ordered 04/08/24 Ordered By: Mireya Kidd Activity: increase activity as tolerated Diet: advance to your usual diet Interventions: Discharge Assessment Last Done: 04/08/24 15:45 MED/SURG & ICU Observation Charge Sheet Last Done: 04/08/24 14:11 Plan of Treatment: follow up [facility] on 2/13/25 1t 3.30 pm emerita gillette. Patient Instructions: Chest Pain (DC), Aortic Root Aneurysm (DC) Activity Restrictions/Additional Instructions: increase water in diet avoid allergens and extreme temps and allergens follow up cardiology and PCP within in a week Forms: Portal/Health Info Access Inst Follow-Ups: Mireya Kidd DO [Primary Care Provider] - 04/20/24 9:00 am Discharge Date/Time: 04/08/24 16:01
[2024-04-08] MEDS ORDERED: NITROGLYCERIN 1 GM OINT...G. TD SCH (22:00)
== END 2024-04-08 16:01 | disposition home or self-care (01) ==
LOC: ED 15:14 → MS 15:14
PROVIDERS: ADMIT Family Medicine; ATTEND Family Medicine